=== PATIENT | male | born 1985 | race Asian ===

== ENCOUNTER 2022-11-24 15:37 | Emergency (ER) | payer OTHER, SELFPAY ==
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
[2022-11-24 15:45] VITALS: BP 109/63; PULSE 76; RESP 18; TEMP 36.6; O2SAT 98; BMI 30.5
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
[2022-11-24] MEDS: methocarbamoL 750 MG TABLET PO (17:15)
[2022-11-24 17:32] VITALS: BP 108/59; PULSE 62; RESP 18; TEMP 36.4; O2SAT 95
== END 2022-11-24 18:09 | disposition home or self-care (01) ==
PROVIDERS: Emergency Provider Emergency Medicine; PCP Hospitalist
DX: S80.02XA Contusion of left knee, initial encounter (principal); S29.012A Strain of muscle and tendon of back wall of thorax, initial encounter; V43.52XA Car driver injured in collision with other type car in traffic accident, initial encounter; Y93.89 Activity, other specified; Y92.414 Local residential or business street as the place of occurrence of the external cause; Y99.9 Unspecified external cause status
CPT/HCPCS: 73564; 99283